=== PATIENT | female | born 1940 | race Caucasian/White ===

== ENCOUNTER → 2018-07-14 | Outpatient (CLI) | payer OTHER ==
[~2018-07-14] MED LIST: "\\\"BP MED\\\""; NORCO 5-325 TA1 EACH PO
== END ==
LOC: M.RAD 08:54
DX: Z12.31 Encounter for screening mammogram for malignant neoplasm of breast (principal)

== ENCOUNTER → 2018-07-14 | Outpatient (CLI) | payer OTHER | LOC: M.RAD 10:49 | DX: M11.262 Other chondrocalcinosis, left knee (principal); I82.412 Acute embolism and thrombosis of left femoral vein; M79.605 Pain in left leg ==

== ENCOUNTER → 2018-07-21 | Outpatient (CLI) | payer OTHER | LOC: M.ULTRA 09:21 | DX: I82.412 Acute embolism and thrombosis of left femoral vein (principal) ==

== ENCOUNTER → 2020-07-12 | Outpatient (CLI) | payer OTHER ==
[~2020-07-12] MED LIST changes: +ATORVASTATIN CA10 MG PO; +LISINOPRIL10 MG PO; +MELOXICAM7.5 MG PO; +OMEPRAZOLE 20 M20 M1 PO; +VITAMIN D31250 MC1 PO
[2020-07-12 11:08] LABS: ABSOLUTE BASOPHILS 0.1 thou/uL (0.0-0.2); ABSOLUTE EOSINOPHILS 0.1 thou/uL (0.0-0.7); ABSOLUTE LYMPHOCYTES 1.5 thou/uL (0.8-5.3); ABSOLUTE MONOCYTES 0.7 thou/uL (0.0-1.2); ABSOLUTE NEUTROPHILS 5.6 thou/uL (1.6-8.1); BASOPHILS 0.9 %; EOSINOPHILS 0.8 %; HEMATOCRIT 41.1 % (37.0-47.0); HEMOGLOBIN 13.4 gm/dL (12.0-15.0); MCH 27.3 pg (26.0-34.0); MCHC 32.6 g/dL (28.0-37.0); MCV 83.9 fL (80.0-100.0); MONOCYTES 8.9 %; MPV 7.5 fl. (7.2-11.1); NUCLEATED RBCS 0 /100WBC; PLATELET COUNT* 330 thou/uL (150-400); POLYS 70.4 %; RDW-CV 15.8 % (10.5-14.5); WBC 7.9 thou/uL (4.0-11.0)
[2020-07-12 11:21] LABS: ALBUMIN 3.6 g/dL (3.4-5.0); APTT 25.6 Seconds (25.0-31.3); CALCIUM 9.2 mg/dL (8.5-10.1); CREATININE 0.9 mg/dL (0.6-1.3); INR 1.1; POTASSIUM 4.6 mmol/L (3.5-5.1); PROTIME 11.2 Seconds (9.20-11.50); TOTAL BILIRUBIN 0.3 mg/dL (<0.1-1.0); TOTAL PROTEIN 7.7 g/dL (6.4-8.2)
[2020-07-12 12:19] LABS: ESR (SEDRATE) 20 mm/hr (0-30)
--- NOTE | 2020-07-12 13:40 | EKG ---
[place] [address] ELECTROCARDIOGRAM REPORT Name: KASANDRA RIBEIRO Room: [facility]#: [id number] Admission: 07/12/20 Attend Phys: Trenton Ni DO Discharge: Date of : 44 Date of Service: 07/12/20 1047 Report #: [id number] THIS REPORT FOR: //name// [facility] Test Date: 2020-07-12 Test Time: 10:47:52 Pat Name: KASANDRA RIBEIRO Department: Room: Gender: [place]: : 1940 Requested By: Trenton Ni Order Number: [id number] Reading MD: Fabricio Mcknight Measurements Intervals [place] Rate: 90 P: 51 WV: 136 QRS: -9 QRSD: 85 T: 26 QT: 362 QTc: 443 Interpretive Statements Sinus rhythm Abnormal R-wave progression, early transition Compared to ECG 05/06/2009 09:46:06 No significant changes Electronically Signed On 07-12-2020 13:40:27 BRISTLE MACHINE OPERATOR by Fabricio Mcknight [email or web address] <ELECTRONICALLY SIGNED> By: Fabricio Mcknight MD, [facility] 07/12/20 1340 1047 1047 Fabricio Mcknight MD, [facility] /EPI
[2020-07-13 02:06] LABS: GLYCOHEMOGLOBIN (HGB A1C) 5.9 % (4.8-5.6)
== END ==
LOC: M.LAB 10:32
PROVIDERS: ATTEND Orthopaedic Surgery
DX: Z01.812 Encounter for preprocedural laboratory examination (principal); Z20.828 Contact with and (suspected) exposure to other viral communicable diseases

== ENCOUNTER 2020-07-18 04:25 | Observation (INO) | payer OTHER ==
[~2020-07-18] VITALS: Ht 167.6 cm; Wt 88.5 kg
--- NOTE | ~2020-07-18 | OP ---
[address] [address] OPERATIVE REPORT Name: KASANDRA RIBEIRO Room: [address] [place]#: [id number] Admission: 07/18/20 Attend Phys: Andrews Marquez Discharge: Date of : 44 Report #: [id number] THIS REPORT FOR: cc: Octavio Paez MD, Dean L. MD ~ Trenton Ni DO DICTATED BY: Zeyad White DO DATE OF SERVICE: 07/18/2020 PREOPERATIVE DIAGNOSIS: Right knee degenerative joint disease. POSTOPERATIVE DIAGNOSIS: Right knee degenerative joint disease. PROCEDURE: Right total knee arthroplasty with Archie Persona arthroplasty system with the following components: A. Size 7 narrow cruciate retained femur. B. Size E natural tibial baseplate. C. A 11 mm medial congruent polyethylene liner. D. A 32 mm 3 peg patella. E. Two bags of Archie bone cement. SURGEON: Trenton Ni DO DENITRATOR: Stephane White DO ANESTHESIA: General with regional nerve block by Anesthesia and local. ESTIMATED BLOOD LOSS: 100 mL. DRAINS: None. SPECIMENS: None. COMPLICATIONS: None. CONDITION OF THE PATIENT: Stable. DISPOSITION: PACU, then home. ANTIBIOTICS: 2 grams Ancef IV piggyback prior to procedure. TOURNIQUET TIME: 54 minutes at 300 mmHg. INDICATIONS FOR PROCEDURE: The patient is a pleasant 79-year-old female who has [address] [address] OPERATIVE REPORT Name: KASANDRA RIBEIRO Room: [address] [place]#: [id number] Admission: 07/18/20 Attend Phys: Andrews Marquez Discharge: Date of : 44 Report #: [id number] been followed in the [facility] for her right knee degenerative joint disease. She failed conservative care for her knee degenerative joint disease; therefore, wanted to undergo right total knee arthroplasty. Prior to procedure, discussed all the risks, benefits, indications, complications associated with surgery and she understands that these include but not limited to infection, wound healing complications, neurovascular injury, need for antibiotics, hardware failure, need for revision surgery, periprosthetic fracture, DVT, PE, end-organ damage, complication of anesthesia, even and other possibilities. The patient demonstrated good understanding and wanted to proceed with surgery. OPERATIVE FINDINGS: A surgical evaluation of the knee demonstrated findings consistent with a degenerative valgus knee with eburnation of the bone, most predominantly in the lateral compartment with overall cartilage thinning throughout with hypertrophic synovitis and normal appearing joint fluid. DESCRIPTION OF PROCEDURE: I met with the patient in the preoperative suite and the correct right knee was marked. The patient was taken to the operating room and placed supine on well-padded table. She was given general anesthetic. A well-padded tourniquet was applied to the right upper thigh and the right lower extremity was sterilely prepped and draped in the standard fashion. At this point, a surgical timeout was completed, indicating correct patient, operative site and procedure performed. All in the room were in agreement, we elected to proceed. I made a standard midline incision using a 10 blade scalpel. Dissection was taken down to the level of the quad tendon and capsule. At this point, with a new knife, the medial parapatellar arthrotomy was performed. Menisci were incised and then a medial periosteal sleeve was developed. The patella was then everted and the knee was brought into flexion. Excess anterior menisci as well as Hoffa's fat pad was removed. Hohmann retractors were placed and the intramedullary drill for the femur was introduced. Next, the intramedullary alignment anthony was passed down the femur and pinned into position with 5 degree valgus cut, resecting 12 mm. The distal femur cut was made. Next, the femur was sized and found to be a size 7. The size 7, 4-in-1 cutting block was then pinned into position. Anterior, posterior and chamfer cuts were made. Excess bone was removed with rongeur. We turned our attention to the tibia. An extramedullary tibial guide was positioned with the appropriate amount of slope and taking a 10 mm resection off the highest point on the lateral side. This was pinned into place and the proximal tibial cut was made. At this point any excess meniscus as well as PCL stump was removed. The knee was brought into extension and a 10 mm spacer block was placed, demonstrating symmetric balance with stable mechanical alignment with the alignment anthony. At this point, knee was brought into flexion again. Trial tibia was pinned into place. Next, the trial femur and a 10 mm spacer was then utilized. The knee was brought through [address] [address] OPERATIVE REPORT Name: KASANDRA RIBEIRO Room: [address] M.R.#: [id number] Admission: 07/18/20 Attend Phys: Andrews Marquez Discharge: Date of : 44 Report #: [id number] range of motion, was found to be found to be symmetric with ligamentous balancing with varus and valgus stress as well as a symmetric flexion and extension gaps. A size 12 trial was also utilized and this did provide additional stability, but is too tight in terms of full extension. Next, we turned our attention to the patella. This was cut in a freehand fashion, it was sized and drilled and a 32 patella trial tracked nicely at the patellofemoral joint. The femur was drilled in a standard form. Next, I used the proximal tibia reamer and cruciform punch to repair that in a standard form. All of the trial components were removed. The bone ends were thoroughly irrigated with Pulsavac and then dried in order to prepare for cementing. The final components were thrown on to the back table and cement was mixed. I cemented the final components in a standard form, starting with the tibia, followed by the femur and lastly the patella. The size 12 trial spacer was again introduced to allow the cement to cure and harden. Final stability check was done and a size 11 final poly was elected. This was thrown on the back table. Once again, thorough irrigation of the knee was done, the final size 11 poly clipped into position and was stable. Tourniquet was let down for a total of 54 minutes. There was good hemostasis achieved with electrocautery. The capsule was closed with a #1 Vicryl in a [id number] fashion followed by a running #1 Quill. Prior to closing the capsule, the 60 mL of the orthopedic cocktail was injected in pericapsularly. The capsule was closed as previously mentioned. The subcutaneous tissue was then irrigated and subcutaneous tissue was closed with a 2-0 Vicryl followed by a running 3-0 Monocryl and Dermabond skin glue. Dressing consisted of Mepilex and a HOMERO hose. Needle and sponge counts were correct x 2 at the end of procedure. The patient was awakened from anesthesia and transferred to PACU in stable condition. ATTESTATION: Dr. Ni was present throughout all critical aspects of the case. POSTOPERATIVE CARE: The patient will be admitted for observation in order to work with physical therapy and occupational therapy teams. She will receive 2 more doses of postoperative antibiotics. Mechanical and chemical DVT prophylaxis will be initiated and she will undergo safe discharge planning. By: [id number] Stephon Ni DO /nt
[2020-07-18 10:39] VITALS: BP 151/97
--- NOTE | 2020-07-18 15:27 | NUR ---
PATIENT ARRIVED TO UNIT AT 1500. ALERT AND ORIENTED X 4. VITAL SIGNS STABLE ON 4L O2 NASAL CANULA. AFEBRILE. POLAR CARE IN PLACE TO LEFT KNEE. DRESSING CLEAN, DRY, AND INTACT. IV PATENT AND SALINE LOCKED. ORIENTED PATIENT TO ROOM. CALL LIGHT WITHIN REACH. NURSING WILL CONTINUE TO MONITOR.
[2020-07-18 16:43] LABS: CALCIUM 8.7 mg/dL (8.5-10.1); POTASSIUM 4.4 mmol/L (3.5-5.1)
[2020-07-18 16:46] LABS: PHOSPHORUS* 4.2 mg/dL (2.5-4.9)
[2020-07-18 20:00] VITALS: BP 165/74
[2020-07-19] VITALS (7 sets, daily range): BP systolic 102–135; BP diastolic 51–65
[2020-07-19 04:29] LABS: HEMATOCRIT 36.1 % (37.0-47.0); HEMOGLOBIN 11.8 gm/dL (12.0-15.0)
--- NOTE | 2020-07-19 05:13 | NUR ---
ASSUMED CARE AT 1930. PATIENT RESTING IN BED. USES BED GUO TO VOID. IVF INFUSING TO RT WRIST. POLAR CARE TO RT KNEE. BILAT KNEE HIGH HOMERO HOSE AND FEET SCDS ON. DRESSING C/D/I. O2 STARTED OUT AT 4L/NC, ON CAPNO. AROUND 0500 R.T. INCREASED 0O2 TO 6L/NC. MEDICATED FOR PAIN WITH RELIEF, SEE MAR. REFUSED TO TURN. HOURLY ROUNDS CONTINUE. CALL LITE IN REACH.
--- NOTE | 2020-07-19 09:05 | NUR ---
Pt is A&O. Resides at home alone. Normally active and independent. Pt has a walker, cane and commode at home. No home o2. No hx of HH or SNF. Possible dc to home today, pending therapy evals and weaning of o2, Pt does not currently use home o2. Pt wants HH at dc, CM faxed referral to [facility] p:[phone] f:[phone]. Pt's son will be staying with her for a few days post dc. Following.
--- NOTE | 2020-07-19 09:26 | NUR ---
CALLED IN PRESCRIPTION WRITTEN TO [phone]. WILL CALL BACK IN ONE HR. TO CHECK COPAY.
--- NOTE | 2020-07-19 16:57 | NUR ---
PT GIVEN DISCHARGE INFORMATION, CARE NOTES, AND PRESCRIPTIONS. IV REMOVED. PT BELONGINGS GATHERED. PT LEFT VIA WHEELCHAIR WITH NURSING STAFF TO HOME WITH HOME HEALTH. FALL RISK PRECAUTIONS IN PLACE. HOURLY ROUNDING COMPLETED.
--- NOTE | 2020-07-20 09:52 | NUR ---
PT. DISCHARGED PRIOR TO O.T. EVAL. PLEASE ORDER FURTHER O.T. SERVICES IF NEEDED.
== END 2020-07-19 16:59 | disposition home health service (06) ==
LOC: M.PRE 04:25 → M.TBA 10:08 → M.3W 10:08 → M.TBA 10:08 → M.PRE 12:26 → M.3W 15:06
PROVIDERS: Orthopaedic Surgery; ADMIT Internal Medicine; ATTEND Internal Medicine
DX: M17.11 Unilateral primary osteoarthritis, right knee (principal); I10 Essential (primary) hypertension; E78.00 Pure hypercholesterolemia, unspecified; K21.9 Gastro-esophageal reflux disease without esophagitis; E78.5 Hyperlipidemia, unspecified; Z79.899 Other long term (current) drug therapy